=== PATIENT | male | born 2000 | race Caucasian/White ===

== ENCOUNTER 2023-12-19 00:40 | Emergency (ER) | payer BC ==
[~2023-12-19] VITALS: Ht 182.9 cm; Wt 86.2 kg
[2023-12-19 00:44] VITALS: BP 128/91; PULSE 72; RESP 18; TEMP 98.9; O2SAT 98
[2023-12-19] MEDS: LORATADINE 10 MG TAB PO ONE (01:15)
[2023-12-19] MEDS: DOXYCYCLINE 100 MG CAP PO ONE (01:16)
--- NOTE | 2023-12-19 01:17 | NUR ---
Patient discharged with v/s stable. Written and verbal after care instructions given and explained. Patient verbalized understanding. Ambulatory with steady gait. All questions addressed prior to discharge. Advised to follow up with PMD.
== END 2023-12-19 01:15 | disposition home or self-care (01) ==
LOC: MED 00:40
DX: S90.561A Insect bite (nonvenomous), right ankle, initial encounter (principal); W57.XXXA Bitten or stung by nonvenomous insect and other nonvenomous arthropods, initial encounter; Y93.89 Activity, other specified; Y92.89 Other specified places as the place of occurrence of the external cause; Y99.8 Other external cause status
CPT/HCPCS: 99283